=== PATIENT | male | born 1970 | race Caucasian/White ===

== ENCOUNTER 2017-04-26 22:24 | Emergency (ER) | payer BC ==
[~2017-04-26] VITALS: Ht 182.9 cm; Wt 88.0 kg
[2017-04-26 22:34] VITALS: BP 122/80
[2017-04-26] MEDS ORDERED: Tetracaine 0.5% Opth 4ml Soln LEFT EYE ONE (22:45)
[2017-04-26] MEDS ORDERED: Fluorescein Strips BOTH EYES ONE (22:45)
[2017-04-26] MEDS ORDERED: CIPROFLOXACIN2.5 ML OP (23:09)
[2017-04-26 23:20] VITALS: BP 122/80
--- NOTE | 2017-04-26 23:49 | Emergency Room Report ---
History of Present Illness General Chief Complaint: Eye Problems Source: Patient Present Illness HPI 47-year-old male, contact lens user, presenting with right eye pain. Patient states that he believes that he scratched his eye with his contact lens. Patient with slight. Also increased tearing. No other complaints Tetanus is up-to-date Allergies: Coded Allergies: No Known Allergies (Unverified , 04/26/17) Patient History Past Medical History: see triage record Past Surgical History: none Pertinent Family History: none Reviewed Nursing Documentation: PMH: Agreed, PSxH: Agreed Nursing Documentation-PMH Hx Cancer: Yes - prostate cancer 3 yrs ago Review of Systems All Other Systems: negative except mentioned in HPI Physical Exam Vital Signs Date Time Temp Pulse Resp B/P (MAP) Pulse Ox O2 Delivery O2 Flow Rate FiO2 04/26/17 22:27 97.7 72 18 122/80 99 Room Air 97.7 Sp02 EP Interpretation: reviewed, normal General Appearance: normal inspection, well appearing, no apparent distress, alert, GCS 15, non-toxic Head: normocephalic, atraumatic Eyes: right eye other - Right EYE with scleral injection, clear watery discharge, upon fluorescein stain noted to have a small corneal abrasion ENT: normal ENT inspection, normal pharynx, normal voice, moist mucus membranes Neck: normal inspection, full range of motion, supple Respiratory: normal inspection, lungs clear, normal breath sounds, no respiratory distress, no retraction, no wheezing, speaking full sentences, chest symmetrical Cardiovascular #1: normal inspection, regular rate, rhythm, normal capillary refill Cardiovascular #2: 2+ radial (R), 2+ radial (L) Musculoskeletal: normal inspection, back normal, normal range of motion, non- tender Neurologic: normal inspection, alert, oriented x3, responsive, motor strength/ tone normal, sensory intact, normal gait, speech normal Psychiatric: normal inspection, judgement/insight normal, memory normal Skin: normal inspection, normal color, no rash, warm/dry, well hydrated, normal turgor Medical Decision Making Diagnostic Impression: Primary Impression: Corneal abrasion, right ER Course 47-year-old male with right eye pain DDX: Corneal abrasion versus corneal ulcer Plan: Fluorescein stain ER course: Patient has remained stable during ED stay. Noted to have corneal abrasion Disposition: Patient is to be discharged to home. Prescriptions given are Cipro ophthalmic drops Patient is instructed to follow up with an transmitter engineer in charge in one week without fail Patient told that he may have a corneal ulcer, and may need further treatment so he must see an transmitter engineer in charge Please note that this Emergency Department Report was dictated using [employer] technology software, occasionally this can lead to erroneous entry secondary to interpretation by the dictation equipment Last Vital Signs Date Time Temp Pulse Resp B/P (MAP) Pulse Ox O2 Delivery O2 Flow Rate FiO2 04/26/17 23:20 97.7 92 18 122/80 99 Room Air 97.7 Disposition: HOME, SELF-CARE Condition: Improved Scripts Ciprofloxacin Hcl (CIPROFLOXACIN HCL) 2.5 Ml Drops 2.5 ML OP FOUR TIMES A DAY for 6 Days, #1 TUBE 0 Refills Prov: Stephanie Eden M.D. 04/26/17 Patient Instructions: Corneal Abrasion, [id number] Additional Instructions: PLEASE SEE AN OPTHALMOLOGIST IN 1 WEEK WITHOUT FAIL Stephanie Eden M.D. Apr 26, 2017 23:49
== END 2017-04-26 23:30 | disposition home or self-care (01) ==
LOC: EMR 22:35
DX: S05.01XA Injury of conjunctiva and corneal abrasion without foreign body, right eye, initial encounter (principal); X58.XXXA Exposure to other specified factors, initial encounter; Y92.9 Unspecified place or not applicable; Z85.46 Personal history of malignant neoplasm of prostate
CPT/HCPCS: 99283